=== PATIENT | female | born 1965 | race Caucasian/White ===

== ENCOUNTER 2018-03-05 07:18 | Day surgery (SDC) ==
[2018-03-05] MEDS ORDERED: SUBLIMAZE ONE (08:45)
[2018-03-05] MEDS ORDERED: ANECTINE ONE (08:45)
[2018-03-05] MEDS ORDERED: DIPRIVAN 20 ML VIAL IVP ONE (08:45)
[2018-03-05] MEDS ORDERED: VERSED ONE (08:45)
[2018-03-05] MEDS ORDERED: DECADRON 4 MG/ML SDV ONE (08:45)
[2018-03-05 14:07] VITALS: BP 132/56; TEMP 98.6
--- NOTE | 2018-03-06 10:41 | OP ---
PREOPERATIVE DIAGNOSIS: CHRONIC LARYNGITIS, VOCAL CORD POLYPS POSTOPERATIVE DIAGNOSIS: CHRONIC LARYNGITIS, VOCAL CORD POLYPS OPERATION: DIRECT LARYNGOSTOMY AND BILATERAL VOCAL CORDS STRIPPING. PROCEDURE: The patient was taken to surgery, placed on the table and general anesthesia was administered. A 5mm tracheal tube was inserted and then using an anterior laryngoscope inserted down to the left of the vocal cords and secured it was a Lewy ardon and using a 400mm lens Zeiss microscope both left and right vocal cords were inspected. It noted to be moderate to severe chronic inflammation of the vocal cords with a small polyp in the mid portion of the left two vocal cords. Under the microscope the mucosa was stripped and sent off for permanent section. Inspection of the base of the tongue and vallecular pyriform sinuses appears free of disease. The patient was then extubated and returned back to the recovery room in satisfactory condition. CC: Dr. Teja [id number]
== END 2018-03-05 09:50 | disposition home or self-care (01) ==
LOC: SURG 07:18
PROVIDERS: ATTEND Otolaryngology
DX: J37.0 Chronic laryngitis (principal); Z87.891 Personal history of nicotine dependence; J38.1 Polyp of vocal cord and larynx